=== PATIENT | female | born 1995 | race Caucasian/White ===

== ENCOUNTER → 2020-09-17 14:58 | Outpatient (CLI) | payer OTHER, BC, SELFPAY | PROVIDERS: PCP Family Medicine; Referring Provider Family Medicine; Visit Provider Family Medicine | DX: G47.33 Obstructive sleep apnea (adult) (pediatric) (principal); R40.0 Somnolence; R06.83 Snoring; E66.9 Obesity, unspecified | CPT/HCPCS: 95806 ==

== ENCOUNTER → 2020-11-25 10:11 | Outpatient (CLI) | payer OTHER, BC, SELFPAY ==
[2020-11-25 12:07] LABS: Ferritin 17.7 ng/ml (6.24-137)
== END ==
PROVIDERS: Visit Provider Specialist
DX: G25.81 Restless legs syndrome (principal)
CPT/HCPCS: 36415; 82728

== ENCOUNTER → 2022-06-02 08:51 | Outpatient (POV) | payer BC, SELFPAY | PROVIDERS: Visit Provider Dermatology | DX: Z00.00 Encounter for general adult medical examination without abnormal findings (principal) ==

== ENCOUNTER 2023-04-04 10:10 | Emergency (ER) | payer SELFPAY ==
[2023-04-04] VITALS (7 sets, daily range): BP systolic 106–137; BP diastolic 59–81; PULSE 58–84; RESP 20; TEMP 36.8; O2SAT 97–100; BMI 29.9
--- NOTE | 2023-04-04 10:34 | HMH.EDGENADL ---
Discharge Plan Disposition Patient Disposition: Home, Self-Care Condition: Good Prescriptions Prescriptions: New cefdinir 300 mg capsule 300 mg PO BID 10 Days Qty: 20 0RF ondansetron 4 mg tablet,disintegrating 4 mg PO Q8H PRN (Reason: nausea and vomiting) 4 Days Qty: 12 0RF fluconazole 150 mg tablet 150 mg PO Q3D Qty: 2 0RF No Action nitrofurantoin monohyd/m-cryst [Macrobid] 100 mg capsule 100 mg PO BID 10 Days Qty: 20 5RF Rx Instructions: must administer with a meal/food sertraline 100 mg tablet 100 mg PO DAILY Patient Comments: TAKE TWO TABLETS BY MOUTH EVERY DAY IN THE MORNING lamotrigine 25 mg tablet See Rx Instructions PO .COMPLEX Rx Instructions: 50mg daily PO; dextroamphetamine-amphetamine 10 mg tablet 10 mg PO PRN Patient Comments: TAKE ONE TABLET BY MOUTH EVERY DAY IN THE EVENING NEEDED FOR adhd Referrals Follow up/Referrals: Jaycob Romeo MD [Primary Care Provider] - See instructions Activity Restrictions/Add. Instructions Additional Instructions/Restrictions: You were evaluated in the emergency department today. Please fruit or nut picker your prescriptions at the pharmacy. Take your full course of antibiotics as prescribed. Follow-up closely with your primary care provider. Return to the emergency department for any new or worsening symptoms. Take the fluconazole as needed for yeast infection. Clinical Impressions Clinical Impression: Pyelonephritis Instructions Patient Instructions: DI for Kidney Infection, DI for Acute Abdominal Pain Discharge ED Provider: Laura Escobar General Adult HPI General Chief complaint: Abdominal Pain Stated complaint: abd pain, vomiting Time Seen by Provider: 04/04/23 10:17 Mode of Arrival: Ambulatory Source of Information: Patient Limitations: No Limitations Description of Symptoms (Recalled from ER Triage Doc. by RN): pt to ed c/o pain under the left side of her ribs. pt states the pain started and she sharted vomiting yesterday. pt reports nausea intermittently this morning. pt denies cp or soa. History of Present Illness HPI narrative: This patient is a 28-year-old female presented to the emergency department for evaluation with concern for left upper quadrant abdominal pain, nausea, and vomiting. patient reports that initially on , she had onset of left upper quadrant abdominal pain/left lower chest pain that radiated up to her left shoulder. She states that she thought that she just had a twinge where she had been laying on that side wrong, however then she began to have nausea and vomiting. Since then, she has not been able to tolerate very much oral intake at all. She states that the pain in her chest is gotten much better and she is no longer experiencing twinges of pain like she was, however she continues to have the left upper quadrant pain, nausea, and vomiting. She denies any fevers, chills, shortness of breath, cough, congestion, changes in bowel movements, hematemesis, bilious emesis, dysuria, polyuria, leg swelling, or other concerns. She denies any history of prior abdominal surgeries. She denies any history of blood clots, clotting disorders, or other issues. Related Data Home Medications Medication Instructions Recorded Confirmed lamotrigine 25 mg tablet See Rx Instructions PO .COMPLEX 10/14/20 05/21/22 sertraline 100 mg tablet 100 mg PO DAILY 10/14/20 05/21/22 dextroamphetamine-amphetamine 10 10 mg PO PRN 11/25/20 05/21/22 mg tablet Previous Rx's Medication Instructions Recorded nitrofurantoin 100 mg PO BID 10 days #20 caps 04/28/22 monohydrate/macrocrystals 100 mg capsule (Macrobid) cefdinir 300 mg capsule 300 mg PO BID 10 days #20 caps 04/04/23 fluconazole 150 mg tablet 150 mg PO Q3D 2 doses #2 tabs 04/04/23 ondansetron 4 mg disintegrating 4 mg PO Q8H PRN nausea and 04/04/23 tablet vomiting 4 days #12 tabs Allergies Allergy/AdvReac Type
--- NOTE | 2023-04-04 10:38 | XR_ITS ---
PROCEDURE INFORMATION: Exam: XR Chest Exam date and time: 04/04/2023 10:45 AM Age: 28 years old Clinical indication: Chest wall pain; Additional info: Luq/l lower chest pain TECHNIQUE: Imaging protocol: Radiologic exam of the chest. Views: 1 view. Total images: 1 COMPARISON: CR TSP THORACIC SPINE-3V SWIMMERS 09/16/2016 12:47 PM FINDINGS: Lungs: Unremarkable. No consolidation. Pleural spaces: Unremarkable. No pleural effusion. No pneumothorax. Heart/Mediastinum: Unremarkable. No cardiomegaly. Bones/joints: Unremarkable. IMPRESSION: No acute findings.
--- NOTE | 2023-04-04 10:43 | ECG_ITS ---
APPROVED REPORT Exam: Resting ECG HR:70 bpm ECG Measurements Heart Rate 70 AXES [place] 139 P 2 QRSd 94 QRS 31 QT 413 T 24 QTc 433 Conclusion SINUS RHYTHM NORMAL ECG UNCONFIRMED REPORT Electronically signed by : Neftaly Garcia MD 04/04/2023 20:49:25
[2023-04-04 10:46] LABS: Microscopic, Urine URINE MICROSCOPIC (MICROSCOPIC)
[2023-04-04 10:59] LABS: Eosinophils # 0.2 K/mm3 (0.0-0.4); Eosinophils % 4.3 % (0.1-12.0); Hematocrit 43.7 % (37.0-47.0); Hemoglobin 14.7 g/dL (12.2-16.2); Lymphocytes # 0.8 K/mm3 (0.7-4.5); Lymphocytes % 21.6 % (10-50); Mean Corpuscular HGB Conc 33.7 g/dL (31.8-35.4); Mean Corpuscular Hemoglobin 28.2 pg (27.0-31.2); Mean Corpuscular Volume 83.9 fl (81-99); Mean Platelet Volume 8.3 fl (7.4-10.4); Monocytes # 0.2 K/mm3 (0.1-1.0); Monocytes % 6.8 % (1.7-9.3); Neutrophils # 2.3 K/mm3 (1.8-7.8); Neutrophils % 66.3 % (37.0-80.0); Platelet Count 207 K/mm3 (142-424); Red Blood Count 5.21 M/mm3 (4.20-5.40); Red Cell Distribution Width 13.4 % (11.5-17.5); White Blood Count 3.5 K/mm3 (4.8-10.8)
[2023-04-04 11:01] LABS: Appearance,Urine CLEAR (Clear); Blood, Urine 3+ (Negative); Color,Urine YELLOW (Yellow); Glucose,Urine (UA) Negative (Negative); Ketones,Urine 1+ (Negative); Leukocyte Esterase,Urine TRACE (Negative); Nitrate,Urine Negative (Negative); Protein,Urine TRACE (Negative)
[2023-04-04 11:02] LABS: Bilirubin,Urine Negative (Negative)
[2023-04-04 11:16] LABS: Coronavirus 19, PCR Not Detected (NotDetected); Influenza A, PCR Not Detected (NotDetected); Influenza B, PCR Not Detected (NotDetected)
[2023-04-04 11:22] LABS: Bacteria,Urine Trace /lpf
[2023-04-04 11:32] LABS: HCG Qualitative, Serum Negative (Negative)
[2023-04-04 11:47] LABS: Troponin I < 0.01 ng/ml (0.00-0.034)
[2023-04-04 11:54] LABS: Alanine Aminotransferase 25 U/L (12-78); Albumin Level 4.9 g/dl (3.5-5.0); Albumin/Globulin Ratio 1.8 (1.1-1.8); Alkaline Phosphatase 88 U/L (38-126); Anion Gap 15.1 mEq/L (5-15); Aspartate Amino Transferase 26 U/L (14-36); Bilirubin,Total 0.8 mg/dl (0.2-1.3); Blood Urea Nitrogen 8 mg/dl (7-17); Calcium 9.4 mg/dl (8.4-10.2); Carbon Dioxide 23 mmol/L (22.0-30.0); Chloride 109 mmol/L (98-107); Creatinine Clearance Estimated 120 mL/min (50-200); Estimated Glomerular Filt Rate 75 ml/min (>60); GFR (African American) 90 ML/MIN (>60); Globulin 2.8 g/dL (1.3-3.2); Glucose 104 mg/dl (74-100); Lipase 46 U/L (23-300); Potassium 4.1 mmoL/L (3.5-5.1); Sodium 143 mmol/L (136-145); Total Protein,Serum 7.7 g/dl (6.3-8.2)
== END 2023-04-04 14:03 | disposition home or self-care (01) ==
PROVIDERS: Emergency Provider Emergency Medicine; PCP Family Medicine
DX: N12 Tubulo-interstitial nephritis, not specified as acute or chronic (principal); R10.12 Left upper quadrant pain; R11.2 Nausea with vomiting, unspecified
CPT/HCPCS: 71045; 80053; 81001; 83690; 84484; 84703; 85025; 87636; 93005; 96361; 96374; 96375; 99285; J0696; J2405

== ENCOUNTER 2023-04-05 09:36 | Observation (INO) | payer OTHER, SELFPAY ==
[2023-04-05] VITALS (11 sets, daily range): BP systolic 95–150; BP diastolic 35–90; PULSE 61–76; RESP 16–20; TEMP 36.6–37.2; O2SAT 98–100; BMI 29.9; BMI 33.2
--- NOTE | 2023-04-05 09:51 | CT_ITS ---
FINAL REPORT TECHNIQUE: After the administration of oral and intravenous contrast, axial images were obtained through the abdomen and pelvis by computed tomography. The study was performed with techniques to keep radiation dose as low as reasonably achievable, (ALARA). Individual dose reduction techniques using automated exposure control or adjustment of mA and/or kV according to the patient's size were employed. CLINICAL HISTORY: L lower chest/LUQ pain, intractable vomiting FINDINGS: Abdomen: The liver measures 22 cm. Spleen measures 20 cm. The gallbladder is present. The pancreas, adrenals and kidneys appear unremarkable. The aorta is normal in caliber. There is no free fluid or adenopathy. There is no evidence of bowel obstruction. Pelvis: The appendix is normal. Uterus is anteverted. The urinary bladder is unremarkable. There is no free fluid or adenopathy. IMPRESSION: Moderate to marked hepatosplenomegaly. Reviewed, Interpreted and Dictated by Fer Jurado MD Transcribed by Millie Palma Authenticated and [facility]
--- NOTE | 2023-04-05 09:51 | CT_ITS ---
FINAL REPORT TECHNIQUE: The patient was injected with IV contrast. Axial images were obtained through the chest in a PE protocol. 3-D reconstruction images were also performed. Individualized dose reduction techniques using automated exposure control or adjustment of the MA and/or KV according to patient's size were employed. CLINICAL HISTORY: L lower chest/LUQ pain, intractable vomiting FINDINGS: Mediastinal vasculature is adequately opacified. No pulmonary artery filling defects are identified to suggest PE. There is no aortic dissection. There is no axillary adenopathy. There is no hilar or mediastinal adenopathy. The heart size is normal. There is no pericardial or pleural effusion. No suspicious infiltrate or nodule is identified. IMPRESSION: No pulmonary embolus or dissection. Reviewed, Interpreted and Dictated by Fer Jurado MD Transcribed by Millie Palma Authenticated and [facility]
[2023-04-05 10:02] LABS: Basophils % 0.6 % (0.1-2.0); Eosinophils # 0.1 K/mm3 (0.0-0.4); Eosinophils % 4.3 % (0.1-12.0); Hematocrit 43.7 % (37.0-47.0); Hemoglobin 14.4 g/dL (12.2-16.2); Lymphocytes # 0.7 K/mm3 (0.7-4.5); Lymphocytes % 24.4 % (10-50); Mean Corpuscular Hemoglobin 28.3 pg (27.0-31.2); Mean Platelet Volume 8.6 fl (7.4-10.4); Monocytes # 0.2 K/mm3 (0.1-1.0); Neutrophils % 65.8 % (37.0-80.0); Platelet Count 196 K/mm3 (142-424); Red Blood Count 5.08 M/mm3 (4.20-5.40); Red Cell Distribution Width 13.4 % (11.5-17.5)
--- NOTE | 2023-04-05 10:20 | PC.NURSE ---
pt given a blanket
[2023-04-05 10:40] LABS: Chloride 107 mmol/L (98-107); Sodium 140 mmol/L (136-145)
[2023-04-05 10:41] LABS: Potassium 3.9 mmoL/L (3.5-5.1)
[2023-04-05 10:43] LABS: Alanine Aminotransferase 27 U/L (12-78); Alkaline Phosphatase 78 U/L (38-126); Anion Gap 15.9 mEq/L (5-15); Aspartate Amino Transferase 31 U/L (14-36); Bilirubin,Total 0.7 mg/dl (0.2-1.3); Blood Urea Nitrogen 6 mg/dl (7-17); Carbon Dioxide 21 mmol/L (22.0-30.0); Creatinine Clearance Estimated 120 mL/min (50-200); Estimated Glomerular Filt Rate 75 ml/min (>60); GFR (African American) 90 ML/MIN (>60)
[2023-04-05 10:44] LABS: Albumin Level 4.5 g/dl (3.5-5.0); Albumin/Globulin Ratio 1.6 (1.1-1.8); Calcium 9.6 mg/dl (8.4-10.2); Globulin 2.9 g/dL (1.3-3.2); Glucose 105 mg/dl (74-100); Lipase 30 U/L (23-300); Total Protein,Serum 7.4 g/dl (6.3-8.2)
[2023-04-05 10:51] LABS: HCG Qualitative, Serum Negative (Negative)
[2023-04-05 10:58] LABS: Troponin I < 0.01 ng/ml (0.00-0.034)
--- NOTE | 2023-04-05 11:38 | PC.NURSE ---
contacted rad to check on status of ct results, states faxing down preliminary reports
--- NOTE | 2023-04-05 11:44 | US_ITS ---
FINAL REPORT CLINICAL HISTORY: pain/n/v COMPARISON: None FINDINGS: Sonographic images of the right upper quadrant were obtained. The pancreas is partially obscured.The liver has an unremarkable appearance. There is sludge present in the gallbladder without evidence of stones or wall thickening. There is no evidence of biliary ductal dilatation.The common duct measures 2.4 mm. Limited images of the right kidney are unremarkable. IMPRESSION: Sludge is present in the gallbladder without evidence of stones. No biliary ductal dilatation is seen. Reviewed, Interpreted and Dictated by Fre Jurado MD Transcribed by Luisa Oropeza Authenticated and [facility]
--- NOTE | 2023-04-05 11:52 | PC.NURSE ---
rounded on pt, pt sleeping upon entering the room, pt mother at BS. Pt woke up while I was in the room. Pt reports does feel some better. States no needs at this time.
--- NOTE | 2023-04-05 12:13 | HMH.EDGENADL ---
Discharge Plan Disposition Patient Disposition: Admitted Clinical Impressions Clinical Impression: Pyelonephritis, Gastritis, Intractable nausea and vomiting, Dehydration Discharge ED Provider: Laura Escobar General Adult HPI General Chief complaint: Abdominal Pain Stated complaint: kidney pain,body aches Time Seen by Provider: 04/05/23 09:40 Mode of Arrival: Ambulatory Source of Information: Patient and Medical Record Limitations: No Limitations Description of Symptoms (Recalled from ER Triage Doc. by RN): Pt reports continued LUQ pain, vomiting, and body aches. Pt reports chills and sweats alternating overnight. Pt states no known fevers, was seen in ER yesterday diagnosed with kidney infection . History of Present Illness HPI narrative: This patient is a 28-year-old female with a history of frequent kidney infections presenting to the emergency department for evaluation with concern for intractable nausea, vomiting, and left upper quadrant pain. She states that she has been taking her medications at home as prescribed, however her symptoms have continued. She reports chills and sweats overnight but no true known fevers. I evaluated her urinary here in the emergency department yesterday, at which point I was concerned for potential pyelonephritis with left upper abdominal pain, nausea, vomiting, and urine that is concerning for possible infection. She was discharged home with cefdinir and Zofran, which have unfortunately not improved her symptoms. Patient denies any other new concerns at this time. Related Data Home Medications Medication Instructions Recorded Confirmed lamotrigine 25 mg tablet 50 mg PO DAILY Seizures 10/14/20 04/05/23 sertraline 100 mg tablet 200 mg PO DAILY Mood 10/14/20 04/05/23 cefdinir 300 mg capsule 300 mg PO BID Infection 04/05/23 04/05/23 dextroamphetamine-amphetamine ER 25 mg PO DAILY ADHD 04/05/23 04/05/23 25 mg 24hr capsule,extend release fluconazole 150 mg tablet 150 mg PO Q3D Infection 04/05/23 04/05/23 ondansetron 4 mg disintegrating 4 mg PO Q8HP PRN nausea and 04/05/23 04/05/23 tablet vomiting Allergies Allergy/AdvReac Type Severity Reaction Status Date / Time amoxicillin [AMOXICILLIN] Allergy Mild Verified 05/21/22 09:21 [facility] Disclaimer: The information contained in this section may have been updated after the patient was seen, as this information can be updated by other users. Social History Smoking Status: Never smoker alcohol intake: current substance use type: denies use current occupational status: employed Travel in the last 8 weeks: None household members: none housing: apartment ROS Obtained: Yes All systems reviewed & no additional complaints except as documented Physical Exam General General appearance: alert and in no apparent distress Head Head exam: atraumatic and normocephalic Eye Eye exam: Present normal appearance, PERRL and EOMI ENT ENT exam: Present normal exam, normal oropharynx, mucous membranes moist and normal external ear exam Neck Neck exam: Present normal inspection, full ROM and trachea midline; Absent tenderness Chest Chest inspection: Present normal inspection and symmetric chest wall rise; Absent tenderness Respiratory Respiratory exam: Present normal lung sounds bilaterally; Absent respiratory distress, wheezes, stridor or accessory muscle use Cardiovascular Cardiovascular exam: Present regular rate and normal rhythm Abdominal Exam Abdominal exam: Present soft and tenderness (LUQ, epigastric); Absent distention or guarding Extremities Exam Extremities exam: Present normal inspection, full ROM and normal capillary refill; Absent tenderness or edema Back Exam Back exam: Present normal inspection and full ROM; Absent tenderness Neurological Exam Neurological exam: Present alert, oriented X3, CN II-XII intact and normal gait; Absent motor sensory deficit Psychiatri
[2023-04-05 12:43] LABS: T4 (Thyroxine) 13.1 ug/dl (5.53-11.0)
--- NOTE | 2023-04-05 12:48 | PC.NURSE ---
pt back to room after u/s. Educated and administered protonix, famotidine, phenergan, and 2nd liter of LR. IV infusing well.
[2023-04-05 12:57] LABS: Thyroid Stimulating Hormone 2.16 uIU/mL (0.465-4.68)
[2023-04-05 13:20] LABS: Microscopic, Urine URINE MICROSCOPIC (MICROSCOPIC)
[2023-04-05 13:24] LABS: Appearance,Urine CLEAR (Clear); Blood, Urine 2+ (Negative); Color,Urine YELLOW (Yellow); Glucose,Urine (UA) Negative (Negative); Ketones,Urine 1+ (Negative); Leukocyte Esterase,Urine Negative (Negative); Nitrate,Urine Negative (Negative); Protein,Urine Negative (Negative); Specific Gravity, Urine 1.025 (1.005-1.030); Urobilinogen,Urine 0.2 EU/dl (0.2)
[2023-04-05 13:31] LABS: Bilirubin,Urine Negative (Negative)
--- NOTE | 2023-04-05 13:49 | PC.NURSE ---
Attempting PO challenge per
[2023-04-05 13:51] LABS: Bacteria,Urine Trace /lpf; RBC,Urine Occasional #/hpf (0-3)
--- NOTE | 2023-04-05 14:12 | PC.NURSE ---
pt tolerating PO intake ( crackers and agustín mist) with out nausea at this time
--- NOTE | 2023-04-05 15:12 | PC.NURSE ---
DR KWABENA OGDEN
--- NOTE | 2023-04-05 15:23 | PC.NURSE ---
waiting reconstructive dentist back from Dr. Romeo
--- NOTE | 2023-04-05 15:31 | PC.NURSE ---
ER MD Escobar speaking with Dr. Romeo
--- NOTE | 2023-04-05 15:39 | PC.NURSE ---
notified care management of admission
--- NOTE | 2023-04-05 15:52 | HMH.PHAINT1 ---
Pharmacy Intervention Comments: MEDICATION RECONCILIATION COMPLETED ON PATIENT USING EXTERNAL FILL HISTORY FROM PHARMACY. -IRWIN BARNEY, SHAYYD
--- NOTE | 2023-04-05 16:07 | PC.NURSE ---
report called to Yasmine Vargas RN on second floor at this time
--- NOTE | 2023-04-05 16:10 | PC.NURSE ---
updated pt on PC
--- NOTE | 2023-04-05 16:37 | PC.NURSE ---
PT GOING UP FOR ADMISSION
--- NOTE | 2023-04-05 16:39 | PC.NURSE ---
arrived by w/c from ED
--- NOTE | 2023-04-05 17:17 | EXP.ACUTE.PN ---
Subjective *Date: 04/05/23 *Time: 17:17 Interval history: Patient seen in ER yesetrday for abdominal pain and vomiting. After work up was sent home, got worse today and returned to ER, CT scans normal, unable to tolerate PO intake in ER. Admitted for bowel rest and IVF. Medical Exam Vital signs and Labs for Last 24 Hours: Vital Signs Temp Pulse Pulse Resp BP BP Pulse Ox 04/05/23 17:00 04/05/23 16:42 97.9 F 71 18 122/82 100 04/05/23 16:37 98.3 F 61 16 150/90 H 04/05/23 13:30 127/74 04/05/23 13:00 130/76 04/05/23 12:40 76 18 125/82 100 04/05/23 11:51 64 124/79 99 04/05/23 11:00 66 20 111/69 99 04/05/23 10:49 67 20 95/35 L 98 04/05/23 10:45 66 100 04/05/23 09:37 98.3 F 76 18 136/90 99 O2 Del Method 04/05/23 17:00 Room Air 04/05/23 16:42 Room Air 04/05/23 16:37 Room Air 04/05/23 13:30 04/05/23 13:00 04/05/23 12:40 04/05/23 11:51 Room Air 04/05/23 11:00 04/05/23 10:49 04/05/23 10:45 04/05/23 09:37 Room Air Intake and Output 04/05/23 04/05/23 04/05/23 07:59 15:59 23:59 Intake Total 1000 / 1000 Output Total 0 / 0 Balance 1000 / 1000 Intake: Intake, Total IV Amount 1000 / 1000 Output: Output, Urine Amount 0 / 0 Other: Number of Unmeasured Voids 0 Weight 180 lb 199 lb 9 oz Patient Weight 04/05/23 23:59 Weight 199 lb 9 oz Laboratory Results - last 24 hr 04/05/23 09:41: Urine Color Yellow, Urine Appearance Clear, Urine pH 7.0, Ur Specific [place] 1.025, Urine Protein Negative, Urine Glucose (UA) Negative, Urine Ketones 1+, Urine Blood 2+, Urine Nitrate Negative, Urine Bilirubin Negative, Urine Urobilinogen 0.2, Ur Leukocyte Esterase Negative, Urine RBC Occasional, Urine WBC 3-5, Ur Squamous Epith Cells 5-10, Urine Bacteria Trace 04/05/23 09:53: WBC 3.0 L, RBC 5.08, Hgb 14.4, Hct 43.7, MCV 86.0, MCH 28.3, MCHC 33.0, RDW 13.4, Plt Count 196, MPV 8.6, Neut % (Auto) 65.8, Lymph % (Auto) 24.4, [place] % (Auto) 5.0, Eos % (Auto) 4.3, Baso % (Auto) 0.6, Neut # (Auto) 2.0, Lymph # (Auto) 0.7, [place] # (Auto) 0.2, Eos # (Auto) 0.1, Baso # (Auto) 0.0, Sodium 140, Potassium 3.9, Chloride 107, Carbon Dioxide 21 L, Anion Gap 15.9 H, BUN 6 L, Creatinine 0.90, Estimated Creat Clear 120, Estimated GFR 75, Est GFR ( Amer) 90, Glucose 105 H, Calcium 9.6, Total Bilirubin 0.7, AST 31, ALT 27, Alkaline Phosphatase 78, Troponin I < 0.01, Total Protein 7.4, Albumin 4.5, Globulin 2.9, Albumin/Globulin Ratio 1.6, Lipase 30, TSH 2.16, Thyroxine (T4) 13.1 H, Serum HCG, Qual Negative I & O for Labs for Last 24 Hours: Intake & Output 04/02/23 04/03/23 04/04/23 04/05/23 23:59 23:59 23:59 23:59 Intake Total 1000 / 1000 Output Total 0 / 0 Balance 1000 / 1000 Weight 199 lb 9 oz Constitutional: Present no acute distress Respiratory: Present normal respiratory effort Cardiac: Present Reg Rate and Rhythm GI: Present tenderness (mainly in LUQ) and normal bowel sounds Extremities: Present normal inspection and full ROM Skin: Present intact; Absent erythema Neuro: Present Grossly Intact and moves all extremities Assessment and Plan *Assessment and plan (1) Intractable nausea and vomiting: Status: Acute Category: Medical Code(s): R11.2 - Nausea with vomiting, unspecified (2) Dehydration: Status: Acute Category: Medical Code(s): E86.0 - Dehydration (3) LUQ abdominal pain: Status: Acute Category: Medical Code(s): R10.12 - Left upper quadrant pain Plan IVF, bowel rest, H&P to follow.
--- NOTE | 2023-04-05 18:12 | EXP.HP ---
History of Present Illness *Admission Date: 04/05/23 *History of present illness: Medical Decision Narrative: In summary, this patient is a 28-year-old female presenting to the Emergency Department for evaluation of continued left upper quadrant pain, nausea, and vomiting after evaluation yesterday, diagnosis of pyelonephritis, and discharged home with cefdinir and Zofran. Differential diagnoses considered include but are not limited to failed outpatient treatment of pyelonephritis, gastritis, dehydration, pancreatitis, cholecystitis. Ruling out the most morbid conditions drove assessment. I reviewed patient's past medical records and noted evaluation yesterday as per HPI. Workup included CBC, CMP, lipase, urinalysis, TSH, T4, urine culture, CTA PE protocol, and CT abdomen pelvis with IV contrast. I independently interpreted CT scan prior to the radiologist read and noted no obvious inflammation or source of infection. Please see their read for final interpretation. Given the patient's continued symptoms, right upper quadrant ultrasound was ordered to evaluate for possible biliary pathology. Labs were obtained that demonstrated no significant leukocytosis, no elevation liver enzymes, and no other concerns. Urinalysis is pending at this time. Patient was given a liter bolus of IV fluids as well as IV Phenergan and Toradol. On reassessment, patient had some improvement after administration of medications as above. She states that she is still feeling rough, so she was given another bolus of IV fluids as well as another dose of IV Phenergan, IV Pepcid, and IV pantoprazole. Right upper quadrant ultrasound and urinalysis pending at this time. On reassessment of urine, she still has trace bacteria as well as some blood in her urine. Patient did have improvement in symptoms. Ultrasound was negative for any pericholecystic fluid or gallbladder wall thickening. She does have biliary sludge. Attempted p.o. challenge the patient was made, however she had significant worsening in symptoms and states that she feels very bad now. Given her intractable symptoms despite multiple attempts at fluid resuscitation and p.o. challenge, I feel the patient would benefit from admission for rehydration and continued monitoring. I had an interactive discussion with Dr. Romeo who will admit the patient. The above is per ER documentation. Patient is a 25-year-old female With a history of bipolar, anxiety, depression who presented to [facility] emergency yesterday for abdominal pain with vomiting. After work-up she was sent home with antibiotic for UTI and Zofran. She became worse today and thus return to the ER. CT scans were normal. She was unable to tolerate p.o. intake in the ER. Ultrasound of the right upper quadrant did show gallbladder sludge. She describes having some GI difficulties for the last 2 months. She said they worsen last week after eating a pizza. This is when she started vomiting. From then on she was unable to keep any food down but was able to drink water at times. With evaluation in the emergency room she did have fluid resuscitation and then was admitted for ongoing IV therapy GI rest, and nausea control. At this time of this exam she continues to experience nausea. She does have abdominal pain as well. [facility] Disclaimer: The information contained in this section may have been updated after the patient was seen, as this information can be updated by other users. Medical History (Updated 04/05/23 @ 17:19 by Jaycob Romeo MD) UTI (urinary tract infection) Surgical History (Updated 04/05/23 @ 17:09 by Tawny Vargas RN) Hx of breast reduction, elective [place] teeth extracted Family History (Updated 04/05/23 @ 17:08 by Tawny Vargas RN) No significant family history Social History (Updated 04/05/23 @ 17:10 by Tawny Vargas RN) Smoking Status: Never smoker alcohol intake: current substance use type: d
--- NOTE | 2023-04-05 21:04 | PC.NURSE ---
DR. JENNIFER OGDEN
--- NOTE | 2023-04-05 21:39 | PC.NURSE ---
THIS RN CONTACTED DR. LAKHANI ABOUT PT REQUESTING AMA @ 2087 DR. YUAN ON THE WITH PT AND TRYING TO TALK TO PT ABOUT LEAVING AMA
--- NOTE | 2023-04-05 22:33 | PC.NURSE ---
THIS RN WAS NOTIFIED OF PATIENT HAVING NAUSEA AT 1950 PER BOLT LABELER; THIS RN WENT IN TO ASSESS PT AND NAUSEA. 2ND FLOOR DID NOT HAVE ZOFRAN ON MAR SO CASKET COVERER WAS NOTIFIED AND ASKED TO GET FROM ED. ONCE HS BROUGHT ZOFRAN TO THIS RN, THIS RN TOOK PO ZOFRAN THAT IS ON THIS PT'S MAR TO THE PT. PT STATED THAT SHE COULD NOT TAKE PO MEDS D/T NAUSEA AND FEELING LIKE SHE IS GOING TO VOMIT AT ANY TIME. AT THIS TIME, PT IS C/O SWEATING, SHAKING, AND NAUSEA THAT IS BARELY CONTROLLED WITH PHENERGAN AND ZOFRAN DOESN'T HELP, BUT SHE'LL TAKE WHATEVER IN HOPES THAT IT'LL HELP. PT C/O LUQ PAIN AND TENDERNESS UNDER RIB CAGE AT THIS TIME WELL. THIS RN PLACED A CALL TO DR. RODRIGUEZ WHO IS MASK LAYOUT DESIGNER FOR DR. YUAN TO GET AN IVP ZOFRAN ORDER INSTEAD OF PO AND TO DISCUSS PATIENT'S PAIN. DURING THE WAIT TIME FOR DR. LAKHANI TO PAGE THIS RN BACK, THIS PT AND HER SO DECIDED THAT SHE SHOULD LEAVE THIS HOSPITAL AND BE SEEN AT A DIFFERENT FACILITY D/T NOT GETTING ANY BETTER OR RELIEF WITH CURRENT PLAN OF CARE. AT THIS TIME THIS RN EXPLAINED TO THIS PT THE CARE OF PLAN WAS TO DO BOWEL REST, REHYDRATION, AND PRN MEDICATION TO HELP WITH NAUSEA. PT AND SO DID NOT LIKE THAT PLAN OF CARE AND THINK THAT THIS PATIENT'S CARE TEAM NEEDED TO BE DOING MORE TO FIGURE OUT WHAT IS CAUSING HER LUQ PAIN BECAUSE SHE'S NEVER HAD THIS ISSUE BEFORE WITH A KIDNEY INFECTION. DR. RODRIGUEZ CALLED THIS RN BACK AFTER PT HAD ALREADY DECIDED SHE WAS GOING TO LEAVE AMA AND THIS RN TOLD MD WHY THIS RN WAS ORIGINALLY CALLING, BUT NOW I AM CALLING TO UPDATE HIM THAT PT IS LEAVING AMA. AFTER AMA PAPERS WERE SIGNED, DR. YUAN CALLED THIS RN AND ASKED WHY PT WANTED TO AMA. THIS RN EXPLAINED TO DR. YUAN WHY PT WANTED TO LEAVE AND EXPLAINED THAT THIS RN ORIGINALLY CALLED TO GET THIS PT'S PRN ZOFRAN SWITCHED FROM PO TO IV. DR. YUAN CONTINUED TO TELL THIS RN THAT HE PLACED AN ORDER AT 1700 FOR IV ZOFRAN AND DISCONTINUED TO PO ZOFRAN. THIS RN PULLED THE MAR UP AND READ TO DR. YUAN THE PO ZOFRAN ORDER AND MADE HIM AWARE THAT I DO NOT SEE AN IVP ZOFRAN ORDER, JUST THE PO AND THAT IS WHY THIS RN PAGED DR. RODRIGUEZ FOR AN IVP ZOFRAN ORDER. AT THIS TIME DR. YUAN ASKED TO SPEAK WITH THIS PT AND SHE AGREE. THIS RN WAS IN THE ROOM DURING THIS CONVERSATION. PT TOLD DR. YUAN THAT HER NAUSEA AND PAIN IS NOT GETTING ANY BETTER AND SHE WANTED TO GO HOME. DR. YUAN TOLD PT THAT HE COULD ORDER HER ANOTHER MEDICATION TO SEE IF THAT HELPS. AT THIS POINT IN THE CONVERSATION, THIS PT AND SO IS VERY UPSET AND FRUSTRATED AND PT STATED SHE JUST WANTED TO LEAVE AND GO HOME. PT MADE IT VERY CLEAR TO THIS RN AND DR. YUAN VIA TELEPHONE THAT SHE WAS NOT HAPPY WITH HER EXPERIENCE DURING HER STAY AND WAS READY TO LEAVE. THIS PT SIGNED HER AMA PAPER, THIS RN WITNESSED, THIS RN REMOVED PT'S IV, AND PT ACCOMPANIED BY HER SO LEFT THE UNIT AT 2150 W/ ALL OF HER BELONGINGS.
--- NOTE | 2023-04-13 23:00 | EXP.DC.SUM ---
General Admission date:: 04/05/23 Discharge date: 04/05/23 HPI HPI HPI: Medical Decision Narrative: In summary, this patient is a 28-year-old female presenting to the Emergency Department for evaluation of continued left upper quadrant pain, nausea, and vomiting after evaluation yesterday, diagnosis of pyelonephritis, and discharged home with cefdinir and Zofran. Differential diagnoses considered include but are not limited to failed outpatient treatment of pyelonephritis, gastritis, dehydration, pancreatitis, cholecystitis. Ruling out the most morbid conditions drove assessment. I reviewed patient's past medical records and noted evaluation yesterday as per HPI. Workup included CBC, CMP, lipase, urinalysis, TSH, T4, urine culture, CTA PE protocol, and CT abdomen pelvis with IV contrast. I independently interpreted CT scan prior to the radiologist read and noted no obvious inflammation or source of infection. Please see their read for final interpretation. Given the patient's continued symptoms, right upper quadrant ultrasound was ordered to evaluate for possible biliary pathology. Labs were obtained that demonstrated no significant leukocytosis, no elevation liver enzymes, and no other concerns. Urinalysis is pending at this time. Patient was given a liter bolus of IV fluids as well as IV Phenergan and Toradol. On reassessment, patient had some improvement after administration of medications as above. She states that she is still feeling rough, so she was given another bolus of IV fluids as well as another dose of IV Phenergan, IV Pepcid, and IV pantoprazole. Right upper quadrant ultrasound and urinalysis pending at this time. On reassessment of urine, she still has trace bacteria as well as some blood in her urine. Patient did have improvement in symptoms. Ultrasound was negative for any pericholecystic fluid or gallbladder wall thickening. She does have biliary sludge. Attempted p.o. challenge the patient was made, however she had significant worsening in symptoms and states that she feels very bad now. Given her intractable symptoms despite multiple attempts at fluid resuscitation and p.o. challenge, I feel the patient would benefit from admission for rehydration and continued monitoring. I had an interactive discussion with Dr. Romeo who will admit the patient. The above is per ER documentation. Patient is a 25-year-old female With a history of bipolar, anxiety, depression who presented to [facility] emergency yesterday for abdominal pain with vomiting. After work-up she was sent home with antibiotic for UTI and Zofran. She became worse today and thus return to the ER. CT scans were normal. She was unable to tolerate p.o. intake in the ER. Ultrasound of the right upper quadrant did show gallbladder sludge. She describes having some GI difficulties for the last 2 months. She said they worsen last week after eating a pizza. This is when she started vomiting. From then on she was unable to keep any food down but was able to drink water at times. With evaluation in the emergency room she did have fluid resuscitation and then was admitted for ongoing IV therapy GI rest, and nausea control. At this time of this exam she continues to experience nausea. She does have abdominal pain as well. Hospital Course Hospital Course Hospital Course: The patient was admitted for hydration, GI rest, and Levsin was also added. The patient left AGAINST MEDICAL ADVICE. Exam Data for Last 24 hours Vital signs and Labs for Last 24 Hours: Temp Pulse Resp BP Pulse Ox O2 Del Method 99.0 F 69 18 135/74 98 Room Air 04/05/23 20:00 04/05/23 20:00 04/05/23 20:00 04/05/23 20:00 04/05/23 20:00 04/05/23 21:00 Narrative: Constitutional Constitutional: no acute distress *Routine HEENT Exam Head: Present normocephalic, atraumatic and other (Facial flush) Eye: Present PERRL; Absent conjunctival icterus, scleral injecti
== END 2023-04-05 21:50 | disposition left against medical advice (07) ==
LOC: ER 15:09 → 2ND 15:46
PROVIDERS: Admitting Provider Family Medicine; Emergency Provider Emergency Medicine; PCP Family Medicine; Visit Provider Family Medicine
DX: E86.0 Dehydration (principal); R11.2 Nausea with vomiting, unspecified; R10.12 Left upper quadrant pain
CPT/HCPCS: 71275; 74177; 76705; 80053; 81001; 83690; 84436; 84443; 84484; 84703; 85025; 87086; G0378; J0131; Q9967

== ENCOUNTER 2023-12-23 08:25 | Outpatient (CLI) | payer OTHER, SELFPAY ==
--- NOTE | 2023-12-23 08:28 | CT_ITS ---
FINAL REPORT CLINICAL HISTORY: HEPATOSPLENOMEGALY COMPARISON: 04/05/2023 FINDINGS: Axial CT images of the abdomen and pelvis were obtained without intravenous contrast. Coronal and sagittal reformatted images were also obtained.This study was performed with techniques to keep radiation doses as low as reasonably achievable (ALARA). Individualized dose reduction techniques using automated exposure control or adjustment of mA and/or kV according to the patient's size were employed. Abdomen:The lung bases are clear. There is no evidence of renal stone or hydronephrosis. There is persistent splenomegaly, the spleen measuring 18.5 cm in craniocaudal dimension, was 20 on the prior exam. Mild hepatomegaly is present as well, visually stable since the prior exam. The pancreas is unremarkable in appearance. No mass or adenopathy is seen. No inflammatory process is identified. Pelvis: Images of the pelvis reveal no evidence of ureteral dilation or ureteral stone.No mass or abnormal fluid collection is identified. IMPRESSION: Persistent hepatosplenomegaly, visually stable since the prior exam of March 2023. No new intra-abdominal abnormality is identified. Reviewed, Interpreted and Dictated by Gino Kidd III, MD Transcribed by Luisa Oropeza Authenticated and [facility]
== END 2023-12-23 23:59 | disposition home or self-care (01) ==
LOC: RAD 08:25
PROVIDERS: PCP Family Medicine; Visit Provider Family Medicine
DX: R16.2 Hepatomegaly with splenomegaly, not elsewhere classified (principal)
CPT/HCPCS: 74176